=== PATIENT | female | born 1950 | race Caucasian/White ===

== ENCOUNTER 2017-03-29 15:23 | Emergency (ER) | payer MEDICARE ==
--- NOTE | 2017-03-29 15:44 | ER Document Report ---
ED General - General Mode of Arrival: Stretcher Information source: Patient - HPI Patient complains to provider of: Possible overdose, fall Onset: This morning Associated symptoms: Slow to respond Exacerbated by: Denies Relieved by: Denies <ARIANNE CHOE - Last Filed: 03/29/17 17:47> <FLORENTINO COLLADO - Last Filed: 03/29/17 20:31> - General Stated Complaint: FALL/WELLNESS CHECK Time Seen by Provider: 03/29/17 15:33 - HPI Notes: Patient is a 66-year-old female who was brought to the emergency room by EMS status post fall at home, upon evaluation patient is with slurred speech, she is confused and it is difficult to get an answer from her when asked a direct question, she states that her in July, and all she wants to do is , that she misses him and wishes to join him, brisa Reyes came to the emergency room shortly after patient arrived, and although patient does not want to allow her to visit her in the emergency room, I did speak with daughter to gather information regarding patient's condition, brisa Reyes states that somedays she will be perfectly fine, however other days she basically will take any pills that she can get her hands on, daughter recently found an empty bottle of Benadryl 1 month ago, patient took granddaughters hydrocodone elixir and drank the whole bottle 1 time, today the daughter found an empty bottle of hydrocodone in patient's room and cannot find a bottle of trazodone, fears that patient may have overdosed on both of these medications this morning causing her slurred speech, change in mental status and causing her to fall earlier today, patient apparently was sitting on the porch when she fell, she went to stand up and fell hitting her elbow, there was no head injury , no loss of consciousness, daughter is unaware of any other injuries except for the right elbow (ARIANNE CHOE) - Related Data Allergies/Adverse Reactions: No Known Allergies Allergy (Unverified 03/29/17 16:38) Past Medical History - General Information source: Relative - Brisa Reyes - Social History Smoking Status: Current Every Day Smoker Family History: Reviewed & Not Pertinent <ARIANNE CHOE - Last Filed: 03/29/17 17:47> Review of Systems - Review of Systems -: Yes ROS unobtainable due to patient's medical condition Musculoskeletal: No symptoms reported Neurological/Psychological: No symptoms reported <ARIANNE CHOE - Last Filed: 03/29/17 17:47> Physical Exam - Vital signs Interpretation: Normal - General General appearance: Other - Difficult to arouse, slurred speech, appears sedated In distress: None - HEENT Head: Normocephalic, Atraumatic Eyes: Normal Conjunctiva: Normal Extraocular movements intact: Yes Eyelashes: Normal Pupils: Pinpoint Sinus: Normal Nasal: Normal Mouth/Lips: Normal Mucous membranes: Dry Pharynx: Normal Neck: Normal - Respiratory Respiratory status: No respiratory distress Chest status: Nontender Breath sounds: Normal Chest palpation: Normal - Cardiovascular Rhythm: Regular Heart sounds: Normal auscultation Murmur: No - Abdominal Inspection: Normal Distension: No distension Bowel sounds: Normal Tenderness: Nontender Organomegaly: No organomegaly - Back Back: Tender - Lumbar paraspinal tenderness - Extremities General upper extremity: Normal inspection General lower extremity: Normal inspection - Neurological Neuro grossly intact: Yes Cognition: Confused Orientation: Disoriented to events Marisabel Coma Scale Eye Opening: Spontaneous Marisabel Coma Scale Verbal: Confused Marisabel Coma Scale Motor: Obeys Commands Marisabel Coma Scale Total: 14 Motor strength normal: LUE, RUE, LLE, RLE - Psychological Associated symptoms: Flat affect - Skin Skin Temperature: Warm Skin Moisture: Dry Skin Color: Normal <ARIANNE CHOE - Last Filed: 03/29/17 17:47> - Vital signs Vitals: Resp Pulse Ox 15 98 03/29/17 15:50 03/29/17 15:50 Course - Laboratory Result Diagrams: 03/29/17 16:15 03/29/17 16:15 - Diagnostic Test Radiology reviewed: Image reviewed, Reports reviewed - EKG Interpretation by Mo EKG shows normal: Sinus rhythm Rate: Normal Rhythm: NSR Heart block present: 1st Degree <ARIANNE CHOE - Last Filed: 03/29/17 17:47> - Laboratory Result Diagrams: 03/29/17 16:15 03/29/17 16:15 <FLORENTINO COLLADO - Last Filed: 03/29/17 20:31> - Re-evaluation Re-evalutation: 03/29/17 17:03 Decision was made to IVC patient based on the fact that she is talking about dying to join her who in July, she is also apparently intentionally overdosing on pills recently, which is likely the cause of her symptoms today, evaluation in the emergency room is otherwise unremarkable regarding labs and imaging, patient was discussed with mental health, who agrees to place patient on involuntary commitment until further evaluation can be completed 03/29/17 17:05 Patient is refusing to allow her daughter Amy to visit while in the emergency room, when I attempted to ask her why this would be patient was unwilling to provide further details, when I asked her what she would do when she is discharged and is to go back and live with her daughter, she stated she will walk back to [place], she also started discussing signing out AGAINST MEDICAL ADVICE, patient is in no condition to be discharged or to sign out AGAINST MEDICAL ADVICE at this point in time as she is heavily sedated, and unable to make appropriate decisions for herself, also evidence reveals that patient likely overdosed on medications possibly in a suicide attempt, which is why involuntary commitment paperwork is completed at this time as patient is a danger to herself 03/29/17 17:21 Patient was reviewed on the [place] controlled substances database, it does reveal that she had 3 prescriptions filled within the last month, the first being for hydrocodone 10/325 quantity 180 which was filled on February 25, lorazepam 2 mg quantity 90 filled on February 25, and temazepam 30 mg quantity 30 tablets filled on March 01 (ARIANNE CHOE) 03/29/17 20:29 The patient remains hemodynamically stable. She is sleepy but easily arousable. She does report that she is on the Brilinta and metoprolol for atrial fibrillation. Those medicines were accounted for on pill count. She also states she is got a history of COPD but is not on any home oxygen. We will continue the Brilinta and metoprolol and hold the other medicines. We will continue to observe overnight with plan for psychiatric evaluation in the morning. Patient does state that she was depressed because of her divorce. ( FLORENTINO COLLADO) - Vital Signs Vital signs: Temp Pulse Resp BP Pulse Ox 97.8 F 14 117/71 99 03/29/17 15:51 03/29/17 15:51 03/29/17 15:51 03/29/17 15:51 - Laboratory Laboratory results interpreted by me: 03/29/17 03/29/17 16:15 16:15 WBC 10.7 H RBC 3.59 L Hgb 11.5 L Hct 33.6 L RDW 14.5 H Chloride 109 H Glucose 112 H Salicylates < 1.0 L Acetaminophen < 10 L Discharge <ARIANNE CHOE - Last Filed: 03/29/17 17:47> <FLORENTINO COLLADO - Last Filed: 03/29/17 20:31> - Discharge Clinical Impression: Overdose Qualifiers: Encounter type: initial encounter Injury intent: undetermined intent Qualified Code(s): T50.904A - Poisoning by unspecified drugs, medicaments and biological substances, undetermined, initial encounter Condition: Fair Disposition: PSYCH HOSP/UNIT
[2017-03-29 16:27] LABS: ABSOLUTE BASOPHILS # (AUTO) 0.1 10^3/uL (0.0-0.2); ABSOLUTE EOSINOPHILS # (AUTO) 0.2 10^3/uL (0.0-0.6); ABSOLUTE LYMPHOCYTES (AUTO) 2.2 10^3/uL (0.5-4.7); ABSOLUTE MONOCYTES (AUTO) 0.6 10^3/uL (0.1-1.4); ABSOLUTE NEUT (AUTO) 7.7 10^3/uL (1.7-8.2); BASOPHILS % (AUTO) 0.7 % (0-2); EOSINOPHILS % (AUTO) 1.5 % (0-6); HEMATOCRIT 33.6 % (36.0-47.0); HEMOGLOBIN 11.5 g/dL (12.0-15.5); HGB HCT DIFFERENCE 0.9; LYMPHOCYTES % (AUTO) 20.3 % (13-45); MEAN CORPUSCULAR HEMOGLOBIN 32.1 pg (27.0-33.4); MEAN CORPUSCULAR HGB CONC 34.3 g/dL (32.0-36.0); MEAN CORPUSCULAR VOLUME 94 fl (80-97); RED BLOOD COUNT 3.59 10^6/uL (3.72-5.28); RED CELL DISTRIBUTION WIDTH 14.5 % (11.5-14.0); SEGMENTED NEUTROPHILS % (AUTO) 71.5 % (42-78); WHITE BLOOD COUNT 10.7 10^3/uL (4.0-10.5)
[2017-03-29 16:38] LABS: ALANINE AMINOTRANSFERASE 27 U/L (9-52); ALBUMIN 3.8 g/dL (3.5-5.0); ALKALINE PHOSPHATASE 113 U/L (38-126); ANION GAP 11 (5-19); ASPARTATE AMINO TRANSFERASE 22 U/L (14-36); BILIRUBIN,DIRECT 0.3 mg/dL (0.0-0.4); BILIRUBIN,TOTAL 0.7 mg/dL (0.2-1.3); BLOOD UREA NITROGEN 11 mg/dL (7-20); CALCIUM 9.8 mg/dL (8.4-10.2); CARBON DIOXIDE 23 mmol/L (22-30); CHLORIDE 109 mmol/L (98-107); CREATININE RESULT 0.68 mg/dL (0.52-1.25); GLUCOSE 112 mg/dL (75-110); SODIUM 142.5 mmol/L (137-145); TOTAL PROTEIN 6.6 g/dL (6.3-8.2)
[2017-03-29 16:39] LABS: ALCOHOL < 10 mg/dL (NONE DETECTED)
--- NOTE | 2017-03-29 17:27 | RADIOLOGY REPORT (SQ) ---
EXAM DESCRIPTION: CT HEAD WITHOUT COMPLETED DATE/TIME: 03/29/2017 5:11 pm REASON FOR STUDY: injury COMPARISON: None. TECHNIQUE: Axial images acquired through the brain without intravenous contrast. Images reviewed wi th bone, brain and subdural windows. Images stored on PACS. All CT scanners at this facility use dose modulation, iterative reconstruction, and/or weight based d osing when appropriate to reduce radiation dose to as low as reasonably achievable (ALARA). [facility]: Dose Right [facility]: CareDose [facility]: Dose Right [facility]: Teradose 4D [facility]: Smart Squid Facil RADIATION DOSE: Up-to-date CT equipment and radiation dose reduction techniques were employed. CTDIv ol: 64.6 mGy. DLP: 1034 mGy-cm. mGy. LIMITATIONS: None. FINDINGS: VENTRICLES: Age-appropriate. CEREBRUM: No masses. No hemorrhage. No midline shift. Areas of low density in the white matter mos t likely due to chronic micro-vascular ischemic change. No evidence for acute infarction. CEREBELLUM: No masses. No hemorrhage. No alteration of density. No evidence for acute infarction. EXTRAAXIAL SPACES: Mild age-related involutional change. No fluid collections. No masses. ORBITS AND GLOBE: No intra- or extraconal masses. Normal contour of globe without masses. CALVARIUM: No fracture. PARANASAL SINUSES: Left maxillary sinus air-fluid level with mucosal thickening in the ethmoid and sp henoid sinuses as well. No mastoid effusion. Right-sided sinuses are clear. SOFT TISSUES: No mass or hematoma. OTHER: No other significant finding. IMPRESSION: No acute intracranial findings. Left sinus disease. TECHNICAL DOCUMENTATION: JOB ID: [id number] Quality ID # [id number]: Final reports with documentation of one or more dose reduction techniques (e.g., Au tomated exposure control, adjustment of the mA and/or kV according to patient size, use of iterative reconstruction technique) 2010 [employer]- All Rights Reserved
[2017-03-29 17:47] LABS: APPEARANCE,URINE CLEAR; BILIRUBIN,URINE NEGATIVE (NEGATIVE); GLUCOSE, URINE NEGATIVE (NEGATIVE); KETONES,URINE NEGATIVE (NEGATIVE); LEUKOCYTE ESTERASE,URINE NEGATIVE (NEGATIVE); NITRITE,URINE NEGATIVE (NEGATIVE); PROTEIN,URINE NEGATIVE (NEGATIVE); UROBILINOGEN,URINE NEGATIVE mg/dL (<2.0)
--- NOTE | 2017-03-29 17:52 | ER Document Report ---
ED Psych Disorder / Suicide - General Chief Complaint: Possible Overdose Stated Complaint: FALL/WELLNESS CHECK Time Seen by Provider: 03/29/17 15:33 Mode of Arrival: Stretcher Information source: Patient, Relative - daughter Cannot obtain history due to: Altered mental status - HPI Patient complains to provider of: Overdose - unknown intent Onset: Just prior to arrival Onset was: Cannot confirm Suicide Risk Factors: Substance abuse - long history of prescription pill abuse Situational problems related to: Recent - [place] 2015 Suicide Attempt Method: Overdose - unknown intent Overdose of: Other Normal mood: No Associated symptoms: Confused Similar symptoms previously: Yes Recently seen / treated by doctor: No Notes: Patient is a 66 year old female who presents via EMS due to fall, possible overdose. Patient at this time is confused and lethargic. Attempted to discuss with patient what, if anything was ingested, she states, "not enough." Attempted to ask patient how much she took, she stated, "not enough." Patient's daughter, states she is unsure what happened today. She states the patient left the house yesterday and was WNL when he left, and then last night and today seemed altered. Daughter states the patient has a long history of prescription pill abuse/misuse, dating back to her (daughter's) childhood. Daughter states the patient historically has overdosed, both accidentally and purposefully on Ativan and other medications. Daughter reports the last intentional overdose, to her knowledge, was 4 years ago. Daughter states she knows this because she was about to give to her daughter. She states the patient, and her father who 07/26/16, misused their prescription pills. She states she drove to [place] to pick her up (January 2017) because her mother started demonstrating bizarre behaviors. Examples, sold the entirety of her belongings, began ordering random items online/spending excessive amounts of money, trading in her vehicle and financing a car with a check engine light on, etc. Daughter states initially after patient's , she went to another state to reside with her sister; however, sister would no longer allow her to reside there because of the drug use. Daughter states the patient filled a prescription for 30 days the end of January, and was out of the medication in 5 days (Ativan). Note, a [place] Narcotic Registry was reviewed and corroborates daughter's reports of prescriptions filled (02/25/17). Daughter states patient has abused hydrocodone, OTC medications, etc. She states she is unsure of her intent or if she overdosed. Daughter states she thought she had oversight over all the pills, but states most are unaccounted for. Patient is lethargic and at times seems confused. Patient's mood was irritable with flat affect. Patient did not discuss suicidal/homicidal ideations. Thought processes were guarded. Conversational speech was low for rate, tone, and prosody. Intellectual abilities were likely impaired. Attention and focus were poor. Insight, judgment, and impulse control were poor. R/O Polysubstance Abuse R/O Depressive Disorder Patient is recommended for IVC. Patient presents via EMS due to possible overdose, of unknown intent. Per collateral contact, patient has a history of both accidental and purposeful overdose as suicide attempts. Patient will be reevaluated at a later time, likely in the morning. I consulted with Dr. Newton in regards to the care and management of this patient. ED MD states she is in agreement with disposition and recommendations. 03/30/2017 Conducted check in with patient who is a 66 year old female under IVC due to overdose. Patient today presents irritable and guarded. Patient avoids answering most questions with direct responses. She does acknowledge that overdosed, although does not report what medications and directs me to ask her daughter, whom she describes as "Nathaniel'karri Spawn." At times, patient would attempt to tell a story; however, at times appeared confused and appeared to mix episodes together. Patient's daughter called to check on patient. Daughter advised that she discovered a 4 page hand written note bedside and the final sentence states, "goodbye." Daughter states she will present later and attempt to visit the patient. Patient is A& O to name and fact that she is in a hospital. Mood is labile, mostly irritable with congruent affect. Patient refuses to discuss suicidal ideations or intent behind her overdose. Patient denies homicidal ideations, intent, plan, or means. Patient denies A/V H. Thought processes were disorganized. Conversational speech was labile for tone. Attention and focus were poor. Insight, judgment, and impulse control were poor. 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 Patient's daughter will present later today reportedly with a 4 page note suggesting suicide intent behind her overdose. Patient is considered a danger to herself. I consulted with Dr. Newton in regards to the care and management of this patient. ED MD is in agreement with disposition and recommendations. 03/31/2017 Conducted check in with patient who is a 66 year old female under IVC. Patient attempted suicide via overdose, and arrived via EMS. A review of patient's chart suggests patient has not been started on psychiatric medications, which was discussed with ED MD. Patient today presents more alert and oriented. She remains irritable, but has not had any outbursts similar to yesterday's ( throwing food and drinks). Patient's daughter did present yesterday to visit and did provide a copy of patient's 3 page hand written note, which ends with her stating, "goodbye." Patient is A&O. Mood is depressed and irritable with flat affect. Patient denies suicidal ideations, and denies writing the note despite showing her the letter. Patient denies homicidal ideations, intentn, plan, or means. Patient denies A/V H Patient has been accepted as inpatient. Patient made aware of pending transfer. Patient encouraged to call her daughter to make aware, and request and needed personal belongings. Patient states she wants to return to [place]. Patient made aware that she will engage in discharge planning once at her next facility, and should communicate her desires at that time. Patient is recommended to follow though with placement. I consulted with Dr. Newton in regards to the care and management of this patient. - Related Data Allergies/Adverse Reactions: No Known Allergies Allergy (Unverified 03/29/17 16:38) Home Medications: Current Home Medications Allopurinol [Zyloprim 300 mg Tablet] 300 mg PO DAILY 03/31/17 [History] Aspirin [Aspirin EC] 81 mg PO DAILY 03/31/17 [History] Atorvastatin Calcium [Lipitor 40 mg Tablet] 40 mg PO QHS 03/31/17 [History] Ibandronate Sodium [Boniva] 150 mg PO ASDIR 03/31/17 [History] Lisinopril [Zestril] 20 mg PO DAILY 03/31/17 [History] Lorazepam [Ativan 0.5 mg Tablet] 0.5 mg PO Q8HP PRN 03/31/17 [History] Metoprolol Tartrate [Lopressor 25 mg Tablet] 25 mg PO DAILY 03/31/17 [History] Temazepam [Restoril] 30 mg PO QHS 03/31/17 [History] Ticagrelor [Brilinta 90 mg Tablet] 90 mg PO Q12 03/31/17 [History] Past Medical History - General Information source: Relative - Daughter Amy - Social History Smoking Status: Current Every Day Smoker Chew tobacco use (# tins/day): No Frequency of alcohol use: Rare Drug Abuse: None Family History: Reviewed & Not Pertinent - Past Medical History Cardiac Medical History: Reports: Hx Hypercholesterolemia, Hx Hypertension Physical Exam - Vital signs Vitals: Resp Pulse Ox 15 98 03/29/17 15:50 03/29/17 15:50 Course - Vital Signs Vital signs: Temp Pulse Resp BP Pulse Ox 98.5 F 96 16 128/77 H 96 03/31/17 08:21 03/31/17 08:21 03/31/17 08:21 03/31/17 08:21 03/31/17 08:21 - Laboratory Result Diagrams: 03/29/17 16:15 03/29/17 16:15 Laboratory results interpreted by me: 03/29/17 03/29/17 16:15 16:15 WBC 10.7 H RBC 3.59 L Hgb 11.5 L Hct 33.6 L RDW 14.5 H Chloride 109 H Glucose 112 H Salicylates < 1.0 L Acetaminophen < 10 L Discharge - Discharge Clinical Impression: Overdose Qualifiers: Encounter type: initial encounter Injury intent: undetermined intent Qualified Code(s): T50.904A - Poisoning by unspecified drugs, medicaments and biological substances, undetermined, initial encounter Condition: Fair Disposition: PSYCH HOSP/UNIT
[2017-03-29 18:01] LABS: URINE BARBITURATES SCREEN NEGATIVE; URINE METHADONE SCREEN NEGATIVE; URINE OPIATES LOW NEGATIVE; URINE PHENCYCLIDINE SCREEN NEGATIVE
--- NOTE | 2017-03-29 22:02 | EKG REPORT ---
SEVERITY:- ABNORMAL ECG - SINUS RHYTHM FIRST DEGREE AV BLOCK PROBABLE LEFT ATRIAL ABNORMALITY : Confirmed by: Ely Estes 29-Mar-2017 22:01:41
[2017-03-30] MEDS ORDERED: DIPHENHYDRAMINE HCL 50 MG CAPSULE PO ONE ×2 (04:21→22:33)
[2017-03-30] MEDS ORDERED: NICOTINE 14 MG/24 HR PATCH.TD24 TD ONE (04:22)
--- NOTE | 2017-03-30 09:58 | ER Document Report ---
Doctor's Note Notes: 03/30/17 09:57 Patient evaluated this morning. She states that she is having chronic sinus drainage and a cough. Patient is noticed to be coughing in the room but it is nonproductive. Lungs do sound clear. A chest x-ray will be obtained to evaluate this further. Otherwise no significant complaints or concerns.
[2017-03-30] MEDS ORDERED: DIPHENHYDRAMINE HCL 25 MG CAPSULE PO ONE ×3 (10:28→18:57)
--- NOTE | 2017-03-30 10:29 | RADIOLOGY REPORT (SQ) ---
EXAM DESCRIPTION: CHEST PA/LAT COMPLETED DATE/TIME: 03/30/2017 10:18 am REASON FOR STUDY: cough COMPARISON: None. EXAM PARAMETERS: NUMBER OF VIEWS: two views TECHNIQUE: Digital Frontal and Lateral radiographic views of the chest acquired. RADIATION DOSE: NA LIMITATIONS: none FINDINGS: LUNGS AND PLEURA: There appear to be mild chronic interstitial changes. There is no pneum onia or pleural effusion. There is a questionable nodular density in the medial right base, but this is not seen on the lateral view than on close inspection this appears to represent summation artifac t from the rib and vascular markings. MEDIASTINUM AND HILAR STRUCTURES: No masses or contour abnormalities. HEART AND VASCULAR STRUCTURES: Heart normal size. No evidence for failure. BONES: Old rib fractures are seen on the right. HARDWARE: None in the chest. OTHER: No other significant finding. IMPRESSION: Mild chronic changes with no acute cardiopulmonary disease. Questionable right lower lo be nodule as discussed. TECHNICAL DOCUMENTATION: JOB ID: [id number] [employer]- All Rights Reserved
[2017-03-30] MEDS ORDERED: ACETAMINOPHEN 325 MG TABLET PO ONE ×2 (18:57→22:33)
[2017-03-31] MEDS ORDERED: ACETAMINOPHEN 325 MG TABLET PO PRN (07:52)
[2017-03-31] MEDS: HYDROXYZINE PAMOATE 50 MG CAPSULE PO PRN ×2 (08:23→17:25)
[2017-03-31 08:47] VITALS: BP 128/77
--- NOTE | 2017-03-31 10:00 | ER Document Report ---
Doctor's Note Notes: 03/31/17 09:48 Patient is sitting up and resting comfortably in her bed. She is pleasant and cooperative. She has no complaints or concerns at this time.
[2017-03-31] MEDS ORDERED: DIVALPROEX SODIUM 500 MG TAB.SR.24H PO ONE (14:57)
[2017-03-31] MEDS ORDERED: DIVALPROEX SODIUM 500 MG TAB.SR.24H PO SCH (18:00)
[2017-03-31] MEDS ORDERED: BUSPIRONE HCL 10 MG TABLET PO SCH (22:00)
[2017-04-01] MEDS ORDERED: BUSPIRONE HCL 10 MG TABLET PO SCH (08:00)
[2017-04-01] MEDS ORDERED: DIVALPROEX SODIUM 500 MG TAB.SR.24H PO SCH (10:00)
== END 2017-03-31 18:10 ==
LOC: ER 15:23
DX: T50.901A Poisoning by unspecified drugs, medicaments and biological substances, accidental (unintentional), initial encounter (principal); R47.81 Slurred speech; R41.0 Disorientation, unspecified; R45.851 Suicidal ideations; S59.901A Unspecified injury of right elbow, initial encounter; W18.30XA Fall on same level, unspecified, initial encounter; Y92.008 Other place in unspecified non-institutional (private) residence as the place of occurrence of the external cause; I48.91 Unspecified atrial fibrillation; F32.9 Major depressive disorder, single episode, unspecified; F17.200 Nicotine dependence, unspecified, uncomplicated; E78.00 Pure hypercholesterolemia, unspecified; I10 Essential (primary) hypertension; R05 Cough
CPT/HCPCS: 99285; 36415; 80307 ×4; 85025; 80053; 81001; 70450; 93005; 93010; A9270 ×5